=== PATIENT | female | born 1985 | race Caucasian/White ===

== ENCOUNTER 2021-10-13 13:21 | Emergency (ER) | payer OTHER ==
[~2021-10-13] VITALS: Ht 157.5 cm; Wt 52.2 kg
[2021-10-13 13:28] VITALS: BP 133/73
--- NOTE | 2021-10-13 14:05 | NUR ---
36/F PRESENTS TO ED WITH C/O HEADACHE, DIZZINESS, CHILLS AND NAUSEA X2 WEEKS. PATIENT REPORTS BACK PAIN X1 WEEK, DENIES RECENT INJURY OR TRAUMA, STATES SHE WAS DX WITH MUSCLE STRAIN AT URGENT CARE. REPORTS TAKING MOTRIN WITH MILD RELIEF, REPORTS 8/10 CONSTANT SHARP PAIN. DENIES FEVERS, V/D OR URINARY SYMPTOMS.
[2021-10-13] MEDS ORDERED: ONDANSETRON 4 MG ODT PO ONE (14:10)
[2021-10-13] MEDS ORDERED: KETOROLAC 60 MG/2 ML VIAL IM ONE (14:10)
--- NOTE | 2021-10-13 14:18 | NUR ---
PO/IM MEDS GIVEN-NADR AT THIS TIME
[2021-10-13] MEDS ORDERED: IBUP-2213 PO (14:45)
[2021-10-13] MEDS ORDERED: ONDA8TAB87 PO (14:45)
[2021-10-13] MEDS ORDERED: ACET-8386 PO (14:45)
[2021-10-13 14:50] VITALS: BP 133/73
--- NOTE | 2021-10-13 14:50 | NUR ---
Patient discharged with v/s stable. Written and verbal after care instructions ABOUT NAUSEA AND ACUTE BACK PAIN given and explained. Patient alert, oriented and verbalized understanding of instructions. Ambulatory with steady gait. All questions addressed prior to discharge. ID band removed. Patient advised to follow up with PMD. Rx of NORCO 5-325, MOTRIN AND ZOFRAN given. Patient educated on indication of medication including possible reaction and side effects. Opportunity to ask questions provided and answered.
== END 2021-10-13 14:50 | disposition home or self-care (01) ==
LOC: MED 13:21
DX: M54.9 Dorsalgia, unspecified (principal); R11.2 Nausea with vomiting, unspecified; R42 Dizziness and giddiness
CPT/HCPCS: 81002; 81025; 96372; 99283; J1885; Q0162